=== PATIENT | female | born 1985 | race Caucasian/White ===

== ENCOUNTER 2019-01-25 15:42 | Emergency (ER) | payer OTHER ==
[~2019-01-25] VITALS: Ht 162.6 cm; Wt 61.2 kg
[2019-01-25 16:15] VITALS: BP 119/66
[2019-01-25] MEDS ORDERED: BUTA1TAB23 PO (16:28)
[2019-01-25] MEDS ORDERED: PROCHLORPERAZINE 10 MG/2 ML VIAL. IM ONE (16:30)
--- NOTE | 2019-01-25 16:39 | PHYS DOC ---
Adult General Chief Complaint Chief Complaint: HEADACHE HPI HPI Patient is a 34-year-old female who presents with chief complaint of multiple complaints she has had a migraine and back pain for 2 years now. She one to come to the ER to get another opinion. She has seen a neurologist as well as a neurosurgeon and has had multiple evaluations in the past she said she had steroid injections in her back. Primary issue today seems to be migraine she had a migraine over the weekend she took her aunts Andreea and it actually went away entirely but it came back a little bit today she was wondering if she could maybe get some of that. No fever does have some nausea and vomiting with the m igraine is typical for her start in the back of her ankles different dull throbbing was with the light. Her back pain has been chronic that is unchanged for 2 years no bowel or bladder continence no weakness Review of Systems Review of Systems Constitutional: Denies fever or chills [] Eyes: Denies change in visual acuity, redness, or eye pain [] Musculoskeletal: Denies back pain or joint pain [] Integument: Denies rash or skin lesions [] Neurologic Endocrine: Denies polyuria or polydipsia [] All other systems were reviewed and found to be within normal limits, except as documented in this note. Current Medications Current Medications Current Medications Medications (Trade) Dose Ordered Sig/Mykel Start Time Stop Time Status Last Admin Dose Admin Prochlorperazine Edisylate (Compazine) 10 mg 1X ONCE 01/25/19 16:30 01/25/19 16:31 DC Allergies Allergies Allergies Coded Allergies Type Severity Reaction Last Updated Verified tetracycline Allergy Unknown 01/25/19 Yes Physical Exam Physical Exam Constitutional: Well developed, well nourished, no acute distress, non-toxic appearance. [] HENT: Normocephalic, atraumatic, bilateral external ears normal, oropharynx moist, no oral exudates, nose normal. [] Eyes: PERRLA, EOMI, conjunctiva normal, no discharge. [] Neck: Normal range of motion, no tenderness, supple, no stridor. [] Cardiovascular:Heart rate regular rhythm, no murmur [] Lungs & Thorax: Bilateral breath sounds clear to auscultation [] Abdomen: Bowel sounds normal, soft, no tenderness, no masses, no pulsatile masses. [] Skin: Warm, dry, no erythema, no rash. [] Back: No tenderness, no CVA tenderness. [] Extremities: No tenderness, no cyanosis, no clubbing, ROM intact, no edema. [] Neurologic: Alert and oriented X 3, normal motor function, normal sensory function, no focal deficits noted. [] Psychologic: Affect normal, judgement normal, mood normal. [] EKG EKG [] Radiology/Procedures Radiology/Procedures [] Course & Med Decision Making Course & Med Decision Making Pertinent Labs and Imaging studies reviewed. (See chart for details) []Neurologically intact essentially chronic pain did have a component of an ac barbara migraine she has tried multiple other medications at home that hasn't helped except for Fioricet to give her an small number of those and told her they were for breakthrough pain really was only she understands. Reassurance given no red flags Dragon Disclaimer Dragon Disclaimer This electronic medical record was generated, in whole or in part, using a voice recognition dictation system. Departure Departure: Impression: Primary Impression: Migraine Disposition: HOME, SELF-CARE Condition: STABLE Patient Instructions: Migraine Headache, [id number] Scripts Butalb/Acetaminophen/Caffeine ([id number] 50-325-40) 1 Each Tablet 1 EACH PO Q6HRS PRN for HEADACHE, #10 TAB Prov: JALYN CONDON MD 01/25/19 JALYN CONDON MD Jan 25, 2019 16:39
== END 2019-01-25 16:52 | disposition home or self-care (01) ==
LOC: ER 15:42
DX: G43.909 Migraine, unspecified, not intractable, without status migrainosus (principal); R11.2 Nausea with vomiting, unspecified; M54.89 Other dorsalgia; G89.29 Other chronic pain; Z88.1 Allergy status to other antibiotic agents
CPT/HCPCS: 96372; 99283; J0780

== ENCOUNTER 2019-03-24 18:53 | Emergency (ER) | payer OTHER ==
[~2019-03-24] VITALS: Ht 162.6 cm; Wt 61.2 kg
[2019-03-24 18:53] VITALS: BP 105/63
[~2019-03-24 18:53] MED LIST: BUTA1TAB23 PO
[2019-03-24] MEDS ORDERED: TRAM50TA PO (19:26)
[2019-03-24] MEDS ORDERED: DICL100T PO (19:26)
[2019-03-24] MEDS ORDERED: ORPH-16 PO (19:26)
--- NOTE | 2019-03-24 19:26 | PHYS DOC ---
Past History Past Medical History: Migraines, Other Past Surgical History: No Surgical History Alcohol Use: None Drug Use: Marijuana Adult General Chief Complaint Chief Complaint: BACK PAIN OR INJURY HPI HPI Patient is a 34-year-old female who presents with complaint of chronic midthoracic back pain and states that she has a history of spinal stenosis. She reports that her pain is worsened when she lays down for prolonged periods of time. She states that she has gone the pain management and has had steroid injections but then ultimately made her symptoms worse. She also indicates that she was seen by Dr. Lee but he indicated that she was not a candidate for surgery. Patient states that nothing is improving her pain. Patient indicates that she has had numerous imaging studies to include MRIs which have revealed Schmorl's nodes and spinal and foraminal stenosis but no herniations.[] Review of Systems Review of Systems Constitutional: Denies fever or chills [] Respiratory: Denies cough or shortness of breath [] Cardiovascular: No additional information not addressed in HPI [] Musculoskeletal: Complains of chronic back pain [] Integument: Denies rash or skin lesions [] Neurologic: Denies headache, focal weakness or sensory changes [] Current Medications Current Medications Current Medications Medications (Trade) Dose Ordered Sig/Mykel Start Time Stop Time Status Last Admin Dose Admin Dexamethasone Sodium Phosphate (Decadron) 10 mg 1X ONCE 03/24/19 19:30 03/24/19 19:31 UNV Ketorolac Tromethamine (Toradol Im) 60 mg 1X ONCE 03/24/19 19:30 03/24/19 19:31 UNV Allergies Allergies Allergies Coded Allergies Type Severity Reaction Last Updated Verified tetracycline Allergy Unknown 01/25/19 Yes Physical Exam Physical Exam Constitutional: Well developed, well nourished, no acute distress, non-toxic appearance. [] Neck: Normal range of motion, no tenderness, supple, no stridor. [] Cardiovascular:Heart rate regular rhythm, no murmur [] Lungs & Thorax: Bilateral breath sounds clear to auscultation [] Back: There is point tenderness around spinous process of T7 and in the paraspinal musculature bilaterally in this region. [] Neurologic: Alert and oriented X 3, no focal deficits noted. [] EKG EKG [] Radiology/Procedures Radiology/Procedures [] Course & Med Decision Making Course & Med Decision Making Pertinent Labs and Imaging studies reviewed. (See chart for details) [] Dragon Disclaimer Dragon Disclaimer This electronic medical record was generated, in whole or in part, using a voice recognition dictation system. Departure Departure: Impression: Primary Impression: Chronic back pain Disposition: 01 HOME, SELF-CARE Condition: STABLE Referrals: HORACE JACOBSON (PCP) Patient Instructions: Chronic Back Pain Scripts Diclofenac Sodium (VOLTAREN-XR) 100 Mg Tab.er.24h 1 TAB PO DAILY PRN for PAIN, #15 TAB Prov: KIERA KWOK Jr. DO 03/24/19 Orphenadrine Citrate (ORPHENADRINE CITRATE) 100 Mg Tablet.er 1 TAB PO BID PRN for MUSCLE SPASMS, #14 TAB Prov: KIERA KWOK Jr. DO 03/24/19 Tramadol Hcl (TRAMADOL HCL) 50 Mg Tablet 50 MG PO PRN Q6HRS PRN for PAIN, #15 TAB Prov: KIERA WKOK Jr. DO 03/24/19 Problem Qualifiers Primary Impression: Chronic back pain Back pain location: thoracic back pain Back pain laterality: unspecified Qualified Codes: M54.6 - Pain in thoracic spine; G89.29 - Other chronic pain KIERA KWOK Jr. DO Mar 24, 2019 19:26
[2019-03-24] MEDS ORDERED: KETOROLAC 60 MG/2 ML VIAL. IM ONE (19:30)
[2019-03-24] MEDS ORDERED: DEXAMETHASONE SOD PHOS 10 MG/ML VIAL IM ONE (19:30)
== END 2019-03-24 19:50 | disposition home or self-care (01) ==
LOC: ER 18:53
DX: G89.29 Other chronic pain (principal); M54.6 Pain in thoracic spine; G43.909 Migraine, unspecified, not intractable, without status migrainosus; Z88.1 Allergy status to other antibiotic agents
CPT/HCPCS: 96372; 99284; J1100; J1885

== ENCOUNTER → 2019-06-16 | Outpatient (CLI) | payer OTHER ==
[~2019-06-16] MED LIST changes: +DICL100T PO; +ORPH-16 PO; +TRAM50TA PO
== END | disposition home or self-care (01) ==
LOC: LAB 10:50
PROVIDERS: ATTEND Psychiatry & Neurology Neurology with Special Qualifications in Child Neurology
DX: G25.81 Restless legs syndrome (principal)
CPT/HCPCS: 82728; 83540; 83550

== ENCOUNTER 2019-08-29 17:15 | Emergency (ER) | payer OTHER, BC ==
[~2019-08-29] VITALS: Ht 162.6 cm; Wt 67.4 kg
[2019-08-29 17:24] VITALS: BP 155/82
[2019-08-29] MEDS ORDERED: lidoderm 5% TOP (17:50)
[2019-08-29] MEDS ORDERED: DICL50TA4 PO (17:50)
--- NOTE | 2019-08-29 17:51 | PHYS DOC ---
Past History Past Medical History: Migraines, Other Past Surgical History: Tonsillectomy Alcohol Use: None Drug Use: Marijuana Adult General Chief Complaint Chief Complaint: BACK INJURY [facility] HPI Patient is a 34-year-old female, who presents to the emergency department for evaluation. She states that she has had chronic neck and back pain for several years. She states she has seen several physicians and had numerous imaging tests, some of which she has with her, including an MRI from about a year and a half ago. She states that the pain in her neck is increased over the past few weeks, she denies any discrete injury. She denies any new numbness, weakness, incontinence, or any new symptoms. She states that she is having trouble finding a pain management physicians, because she has states that she received neck and back injections in the past, which have not seemed to improve her symptoms, and other physicians did not seem to want to help her. She currently takes gabapentin, Flexeril, as well as ibuprofen. She also takes Fioricet for her migraines. There are no alleviating or exacerbating factors to her symptoms. Review of Systems Review of Systems Constitutional: Denies fever or chills [] Eyes: Denies change in visual acuity, redness, or eye pain [] HENT: Denies nasal congestion or sore throat [] Respiratory: Denies cough or shortness of breath [] Cardiovascular: No additional information not addressed in HPI [] GI: Denies abdominal pain, nausea, vomiting, bloody stools or diarrhea [] : Denies dysuria or hematuria [] Musculoskeletal: Denies new neck, back pain or joint pain [] Integument: Denies rash or skin lesions [] Neurologic: Denies headache, focal weakness or sensory changes [] Allergies Allergies Allergies Coded Allergies Type Severity Reaction Last Updated Verified tetracycline Allergy Unknown 01/25/19 Yes Physical Exam Physical Exam PHYSICAL EXAM: CONSTITUTIONAL: Well developed, well nourished HEAD: normocephalic, atraumatic EENT: PERRL, EOMI. Conjunctivae normal color, sclerae non-icteric; moist mucous membranes. NECK: Supple, non-tender; no meningismus.There is full, painless range of motion of the cervical spine, without any focal bony midline tenderness to palpation. LUNGS: Lungs CTA, breathing even and unlabored. Normal air movement. HEART: Regular rate and rhythm, no murmur CHEST: No deformity; non-tender ABDOMEN: The abdomen is soft, and non-tender, no masses or bruits. EXTREM: Normal ROM; no deformity, no calf tenderness. Normal pulses palpable in all extremities. There is no pedal edema. SKIN: No rash; no diaphoresis NEURO: Alert; normal speech and cognition; CN's grossly intact; strength grossly intact without focal deficit. BACK: No CVA TTP.There is no bony tenderness to palpation of the thoracic or lumbar spine. Current Patient Data Vital Signs Vital Signs Date Time Temp Pulse Resp B/P (MAP) Pulse Ox O2 Delivery O2 Flow Rate FiO2 08/29/19 17:24 97.8 113 18 155/82 (106) 97 Room Air EKG EKG [] Radiology/Procedures Radiology/Procedures [] Course & Med Decision Making Course & Med Decision Making I discussed the importance of further outpatient evaluation, given the chronic nature of the patient's symptoms, I discussed return precautions for development of neurological symptoms. Dragon Disclaimer Dragon Disclaimer This electronic medical record was generated, in whole or in part, using a voice recognition dictation system. Departure Departure: Impression: Primary Impression: Chronic neck pain Additional Impression: Chronic back pain Disposition: HOME, SELF-CARE Condition: STABLE Referrals: HORACE JACOBSON (PCP) Patient Instructions: Chronic Back Pain, Degenerative Disk Disease Additional Instructions: Do not take the prescribed medication with ibuprofen. Use instead of ibuprofen. Follow up with Dr. Matthias Monaco,, neurosurgery, call [phone] to schedule an appointment. Scripts [lidoderm 5%] No Conflict Check 1 PATCH TOP DAILY, #30 Prov: SUSIE GLORIA MD 08/29/19 Diclofenac Sodium (DICLOFENAC SODIUM) 50 Mg Tablet. 1 TAB PO BID for pain, #20 TAB 1 Refill Prov: SUSIE GLORIA MD 08/29/19 Problem Qualifiers SUSIE GLORIA MD Aug 29, 2019 17:51
== END 2019-08-29 17:55 | disposition home or self-care (01) ==
LOC: ER 17:15
DX: G89.29 Other chronic pain (principal); M54.2 Cervicalgia; M54.9 Dorsalgia, unspecified; G43.909 Migraine, unspecified, not intractable, without status migrainosus; F12.90 Cannabis use, unspecified, uncomplicated; Z90.89 Acquired absence of other organs; Z88.1 Allergy status to other antibiotic agents
CPT/HCPCS: 99283

== ENCOUNTER 2020-02-19 20:24 | Observation (INO) | payer BC, OTHER ==
[~2020-02-19] VITALS: Ht 162.6 cm; Wt 68.2 kg
[~2020-02-19 20:24] MED LIST changes: +DICL50TA4 PO; +lidoderm 5% TOP
[2020-02-19 21:00] LABS: BASO % 0 % (0-3); EOS # 0.1 x10^3/uL (0.0-0.7); EOS % 1 % (0-3); HEMATOCRIT 39.7 % (36.0-47.0); HEMOGLOBIN 13.5 g/dL (12.0-15.5); LYMPH # 2.6 x10^3/uL (1.0-4.8); LYMPH % 41 % (24-48); MEAN CORPUSCULAR HEMOGLOBIN 31 pg (25-35); MEAN CORPUSCULAR HGB CONC 34 g/dL (31-37); MEAN CORPUSCULAR VOLUME 92 fL (79-100); MONO # 0.3 x10^3/uL (0.0-1.1); MONO % 6 % (0-9); NEUT # 3.3 x10^3uL (1.8-7.7); NEUT % 52 % (31-73); PLATELET COUNT 296 x10^3/uL (140-400); RED BLOOD COUNT 4.31 x10^6/uL (3.50-5.40); RED CELL DISTRIBUTION WIDTH 12.8 % (11.5-14.5); WHITE BLOOD COUNT 6.4 x10^3/uL (4.0-11.0)
[2020-02-19] MEDS ORDERED: NALOXONE 0.4 MG/ML VIAL. ONE (21:05)
[2020-02-19 21:08] LABS: CALCIUM 9.5 mg/dL (8.5-10.1); CREATININE 0.9 mg/dL (0.6-1.0); GFR 72.1; POTASSIUM 3.6 mmol/L (3.5-5.1)
[2020-02-19 21:10] LABS: BILIRUBIN,URINE NEG (NEG); CLARITY,URINE CLEAR; COLOR,URINE YELLOW; GLUCOSE,URINE NEG (NEG)
--- NOTE | 2020-02-19 21:10 | EKG ---
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
[2020-02-19 21:11] LABS: BACTERIA,URINE MANY /HPF (0-FEW); HYALINE CASTS, URINE OCC /HPF; NITRITE,URINE POS (NEG); SQUAMOUS EPITHELIAL CELL,UR OCC /LPF; UROBILINOGEN,URINE 0.2 mg/dL (0.2 mg/dL)
[2020-02-19 21:14] LABS: ALBUMIN 4.2 g/dL (3.4-5.0); ALBUMIN/GLOBULIN RATIO 1.5 (1.0-1.7); TOTAL BILIRUBIN 0.4 mg/dL (0.2-1.0)
[2020-02-19] MEDS ORDERED: IV NORMAL SALINE 1,000ML 1,000 ML IV ONE (21:15)
[2020-02-19] MEDS ORDERED: NALOXONE 0.4 MG/ML VIAL. IV ONE (21:15)
--- NOTE | 2020-02-19 21:24 | RAD ---
Exam: CT head and cervical spine without contrast INDICATION: Slurred words, altered mental status TECHNIQUE: Sequential axial images through the head and cervical spine were obtained without the administration of IV contrast. Comparisons: None FINDINGS: Head: No focal parenchymal lesion or hemorrhage is identified. There is no midline shift or sulcal effacement. No acute vascular territory infarction is identified. Martines-white distinction is preserved. The ventricular system is within normal limits without compression hydrocephalus. The basal cisterns are well maintained. The visualized portions of the paranasal sinuses and mastoid air cells are well-pneumatized. No acute fractures. Cervical spine: Straightening of cervical spine which may positional. Vertebral body heights are well-maintained. Fracture to the cervical spine is not identified. No significant spondylotic change in cervical spine. Visualized spinal soft tissues are unremarkable. IMPRESSION: 1. No acute intracranial abnormality. 2. Negative CT C-spine for acute traumatic injury. Exposure: One or more of the following in the visualized dose reduction techniques were utilized for this examination: 1. Automated exposure control 2. Adjustment of the MA and/or KV according to patient size Use of iterative of reconstructive technique Electronically signed by: Pasquale Tucker MD (02/19/2020 9:22 PM) [id number]
--- NOTE | 2020-02-19 21:28 | RAD ---
Exam: Right ankle 3 views INDICATION: Swelling TECHNIQUE: Frontal, lateral and oblique views of the right ankle Comparisons: None FINDINGS: Soft tissue swelling at the ankle prominently overlying the lateral malleolus. Bone mineralization is normal. No acute or healed fractures. IMPRESSION: Soft tissue swelling at the ankle without underlying osseous abnormality identified. Electronically signed by: Pasquale Tucker MD (02/19/2020 9:25 PM) [id number]
--- NOTE | 2020-02-19 21:29 | RAD ---
Exam: Chest one view INDICATION: Slurred speech TECHNIQUE: Frontal view of the chest Comparisons: None FINDINGS: The cardiomediastinal silhouette and pulmonary vessels are within normal limits. The lung and pleural spaces are clear. IMPRESSION: No acute cardiopulmonary process. Electronically signed by: Pasquale Tucker MD (02/19/2020 9:26 PM) [id number]
[2020-02-19 21:30] LABS: SALIC < 2.8 mg/dL (2.8-20.0)
[2020-02-19 21:31] LABS: ACETAMIN < 2.0 mcg/mL (10-30)
[2020-02-19 22:19] LABS: AMPHETAMINE/METHAMPHETAMINE NEG (NEG); BARBITURATES POS (NEG); BENZODIAZEPINES POS (NEG); CANNABINOIDS NEG (NEG); COCAINE NEG (NEG); METHADONE NEG (NEG); OPIATES POS (NEG); PHENCYCLIDINE NEG (NEG)
[2020-02-19] MEDS ORDERED: IV NORMAL SALINE 50ML 50 ML ONE (22:48)
[2020-02-19] MEDS ORDERED: cefTRIAXone SODIUM 1 GM VIAL ONE (22:48)
[2020-02-19 23:35] VITALS: BP 118/73
--- NOTE | 2020-02-20 02:50 | PHYS DOC ---
Past History Past Medical History: Migraines, Other Past Surgical History: Tonsillectomy Alcohol Use: None Drug Use: Marijuana Adult General Chief Complaint Chief Complaint: ALTERED MENTAL STATUS HPI HPI Patient is a 35 year old female who presents with altered mental status and a swollen right ankle. According to report patient was found down outside of her house by her . Nobody had seen her for 3 hours. She reportedly had gone to the pool at their neighbors house and and left the pool 3 hours earlier to go get something and never returned. Patient is unable to provide any history. Review of Systems Review of Systems Unable to obtain Current Medications Current Medications Current Medications Medications (Trade) Dose Ordered Sig/Mykel Start Time Stop Time Status Last Admin Dose Admin Ceftriaxone Sodium 1 gm/ Sodium Chloride 50 ml @ 100 mls/hr 1X ONCE 02/19/20 22:45 02/19/20 23:14 DC 02/19/20 22:52 100 MLS/HR Ceftriaxone Sodium (Rocephin) 1 gm STK-MED ONCE 02/19/20 22:48 02/19/20 22:48 DC Naloxone HCl (Narcan) 0.4 mg 1X ONCE 02/19/20 21:15 02/19/20 21:16 DC 02/19/20 21:08 0.4 MG Sodium Chloride 50 ml @ As Directed STK-MED ONCE 02/19/20 22:48 02/19/20 22:48 DC Allergies Allergies Allergies Coded Allergies Type Severity Reaction Last Updated Verified tetracycline Allergy Unknown 01/25/19 Yes Physical Exam Physical Exam General: Awake, lethargic, no acute distress. Well Nourished, well hydrated. Cooperative HEENT: Atraumatic, EOMI, PERRL, airway patent, dry oral mucosa Neck: Supple, trachea midline Respiratory: CTA bilaterally, normal effort, no wheezing/crackles CV: Tachycardic, no murmur, cap refill <2 GI: Soft, nondistended, nontender, no masses MSK: Right ankle swelling with minimal bruising, no lacerations Skin: Warm, dry, intact Neuro: Slurred incomprehensible speech, reacts to pain in all 4 extremities, follows commands in all 4 extremities Current Patient Data Vital Signs Vital Signs Date Time Temp Pulse Resp B/P (MAP) Pulse Ox O2 Delivery O2 Flow Rate FiO2 02/19/20 23:35 98.6 96 18 118/73 (88) 100 Room Air Lab Results Laboratory Tests Test 02/19/20 20:30 02/19/20 20:35 02/19/20 20:37 02/19/20 22:00 White Blood Count 6.4 x10^3/uL (4.0-11.0) Red Blood Count 4.31 x10^6/uL (3.50-5.40) Hemoglobin 13.5 g/dL (12.0-15.5) Hematocrit 39.7 % (36.0-47.0) Mean Corpuscular Volume 92 fL (79-100) Mean Corpuscular Hemoglobin 31 pg (25-35) Mean Corpuscular Hemoglobin Concent 34 g/dL (31-37) Red Cell Distribution Width 12.8 % (11.5-14.5) Platelet Count 296 x10^3/uL (140-400) Neutrophils (%) (Auto) 52 % (31-73) Lymphocytes (%) (Auto) 41 % (24-48) Monocytes (%) (Auto) 6 % (0-9) Eosinophils (%) (Auto) 1 % (0-3) Basophils (%) (Auto) 0 % (0-3) Neutrophils # (Auto) 3.3 x10^3uL (1.8-7.7) Lymphocytes # (Auto) 2.6 x10^3/uL (1.0-4.8) Monocytes # (Auto) 0.3 x10^3/uL (0.0-1.1) Eosinophils # (Auto) 0.1 x10^3/uL (0.0-0.7) Basophils # (Auto) 0.0 x10^3/uL (0.0-0.2) Salicylates Level < 2.8 mg/dL (2.8-20.0) L Salicylate Last Dose Date Unknown Salicylate Last Dose Time Unknown Acetaminophen Level < 2.0 mcg/mL (10-30) L Acetaminophen Last Dose Date Unknown Acetaminophen Last Dose Time Unknown Ethyl Alcohol Level < 10 mg/dL (0-10) Sodium Level 144 mmol/L (136-145) Potassium Level 3.6 mmol/L (3.5-5.1) Chloride Level 105 mmol/L (98-107) Carbon Dioxide Level 28 mmol/L (21-32) Anion Gap 11 (6-14) Blood Urea Nitrogen 8 mg/dL (7-20) Creatinine 0.9 mg/dL (0.6-1.0) Estimated GFR (Cockcroft-Gault) 72.1 BUN/Creatinine Ratio 9 (6-20) Glucose Level 103 mg/dL (70-99) H Calcium Level 9.5 mg/dL (8.5-10.1) Total Bilirubin 0.4 mg/dL (0.2-1.0) Aspartate Amino Transferase (AST) 14 U/L (15-37) L Alanine Aminotransferase (ALT) 23 U/L (14-59) Alkaline Phosphatase 46 U/L (46-116) Creatine Kinase 88 U/L (26-192) Troponin I Quantitative < 0.017 ng/mL (0-0.055) Total Protein 7.0 g/dL (6.4-8.2) Albumin 4.2 g/dL (3.4-5.0) Albumin/Globulin Ratio 1.5 (1.0-1.7) Urine Collection Type U cath Urine Color Yellow Urine Clarity Clear Urine pH 6.0 Urine Specific [place] 1.025 Urine Protein Neg (NEG-TRACE) Urine Glucose (UA) Neg mg/dL (NEG) Urine Ketones (Stick) Neg mg/dL (NEG) Urine Blood Trace (NEG) Urine Nitrite Pos (NEG) Urine Bilirubin Neg (NEG) Urine Urobilinogen Dipstick 0.2 mg/dL (0.2 mg/dL) Urine Leukocyte Esterase Neg (NEG) Urine RBC 3-5 /HPF (0-2) Urine WBC 5-10 /HPF (0-4) Urine Squamous Epithelial Cells Occ /LPF Urine Bacteria Many /HPF (0-FEW) Urine Hyaline Casts Occ /HPF Urine Mucus Slight /LPF Urine Opiates Screen Pos (NEG) Urine Methadone Screen Neg (NEG) Urine Barbiturates Pos (NEG) Urine Phencyclidine Screen Neg (NEG) Urine Amphetamine/Methamphetamine Neg (NEG) Urine Benzodiazepines Screen Pos (NEG) Urine Cocaine Screen Neg (NEG) Urine Cannabinoids Screen Neg (NEG) Urine Ethyl Alcohol Neg (NEG) EKG EKG [] Radiology/Procedures Radiology/Procedures [] Course & Med Decision Making Course & Med Decision Making Pertinent Labs and Imaging studies reviewed. (See chart for details) Patient is a 35-year-old [] who presents to the Emergency Room with altered mental status. On exam, male patient has slurred speech and is unable to provide history. She also has signs of trauma to her ankle making a fall possible. Glucose was normal upon arrival. Patient's temperature is normal. There are signs of trauma. Differential includes intoxication, psychosis, possible infection, metabolic encephalopathy, overdose, atypical migraine, concussion, intracranial bleed. CBC, BMP, UA, drug screen, alcohol level, tylenol/salicylate levels, CT head were ordered to evaluate for cause of altered mental status. On reevaluation, patient is unchanged. Work-up is negative. Patient will be admitted for observation. Dragon Disclaimer Dragon Disclaimer This electronic medical record was generated, in whole or in part, using a voice recognition dictation system. Departure Departure: Impression: Primary Impression: Altered mental status Additional Impressions: Fall Sprained ankle Disposition: 01 HOME/RESIDENCE PRIOR TO ADM Condition: STABLE Referrals: HORACE JACOBSON (PCP) Justification of Admission: Justification of Admission: Justification of Admission Dx: Yes Problem Qualifiers ANTONIO PRICE MD Feb 20, 2020 02:50
[2020-02-20 05:28] VITALS: BP 127/74
[2020-02-20] MEDS ORDERED: IBUPROFEN 600 MG TABLET. PO ONE (06:00)
[2020-02-20] MEDS ORDERED: CYCL-331 PO (06:45)
[2020-02-20] MEDS ORDERED: TRAZ-120 PO (06:45)
[2020-02-20] MEDS ORDERED: PREG50CA PO (06:45)
[2020-02-20] MEDS ORDERED: IBUP400T18 PO (06:45)
--- NOTE | 2020-02-20 10:05 | DS ---
DATE OF DISCHARGE: 02/20/2020 ATTENDING PHYSICIAN: Dr. Adame. FINAL DISCHARGE DIAGNOSES: 1. Altered mentation due to a combination of medicines and alcohol. 2. Migraine equivalent. 3. History of migraine headaches. 4. Chronic low back pain. 5. Degenerative arthritis. 6. Sprained ankle without evidence of fracture. HISTORY AND PHYSICAL: The patient is a 35-year-old female who was confused. She had taken some Flexeril along with some alcohol in a pool democrat. brought her here and she does not remember what happened. She had fallen sustaining a mild sprain of the right ankle. X-rays demonstrated no acute fracture. There is some soft tissue swelling. She was admitted then for observation. Her CT of the head and cervical spine were entirely unremarkable. PHYSICAL EXAMINATION: Please see the dictated note. PERTINENT LABORATORY AND X-RAY STUDIES: Normal CT head normal. Normal Chest x-ray. Soft tissue swelling of the right ankle without any evidence of acute fractures. Her hemoglobin was normal at 13.5 g/dL with white count of 6400. Chemistry panel: BUN and creatinine, cardiac enzymes, blood sugar are all within normal range. COURSE IN HOSPITAL: The patient was admitted for observation. She went back to baseline. Thought process is clear. She was quite lucid. She had no further issues. At this time, I recommended that she continue using her Fioricet for pain. She will follow up with Manny Flores in the office. I would recommend avoiding further alcohol use while she is on these medications. Other home meds are unchanged as in the H and P. She was discharged then from our hospital in stable condition with explicit instructions and followup care. ORALIA ADAME MD DR: KAYCEE/elizabeth JOB#: [id number] / [id number] MANNY Brenner
--- NOTE | 2020-02-20 10:05 | HP ---
ADMIT DATE: 02/20/2020 ATTENDING PHYSICIAN: Dr. Adame. CHIEF COMPLAINT: Confusion. HISTORY OF PRESENT ILLNESS: The patient is a 35-year-old female brought in by the with onset of confusion. She has a longstanding history of migraine headaches. She took her regular medication. She had some Flexeril for chronic back pain and she had a couple of drinks of the pool green party, she went home, was confused and the brought in for altered mentation. She could not remember what happened. She has sprained her ankle on the right side. X-rays demonstrated a soft tissue swelling, no acute fractures identified. She was brought in for observation. PAST MEDICAL HISTORY: Significant for chronic migraine headaches, chronic low back pain. She is currently being evaluated for rheumatoid arthritis. ALLERGIES: SHE HAS ALLERGIES TO TETRACYCLINE. EXACT CAUSE IS UNCLEAR. SOCIAL HISTORY: She is a nonsmoker. She drinks very rarely. She is . She lives with her mom and her and 2 sons, ages 2 and 9. The mom provides full-time care. 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 She tells me she has been under a lot of stress. She has chronic neck and back pain. CURRENT MEDICATIONS: Reviewed. She was on prescription Fioricet p.r.n. pain, trazodone, recently started by a pain specialist, Flexeril p.r.n., Voltaren p.r.n., ibuprofen p.r.n., Lyrica, Ultram, trazodone and Lidoderm patch. FAMILY HISTORY: Noncontributory. REVIEW OF SYSTEMS: Significant for increased stress of chronic neck and back pain. No fevers, chills, COVID exposure, cough, congestion, some palpitations occasionally, some difficulty sleeping. No weight gain. All other systems reviewed and turned to be negative. PHYSICAL EXAMINATION: GENERAL: I saw her, this is a pleasant young female. INITIAL VITAL SIGNS: Showed blood pressure 118/73, pulse is 90 and regular, temperature 98.6 degrees Fahrenheit, oxygen saturation 98% on room air. HEENT: Head is without trauma. Pupils are reactive. Sclerae nonicteric. Oropharynx clear. NECK: Supple, no bruits identified. LUNGS: Clear to auscultation. CARDIOVASCULAR: Showed regular heart tones. No gallops. Peripheral pulses are palpable and full. ABDOMEN: Soft, scaphoid, nontender, no organomegaly. Bowel sounds are hypoactive. EXTREMITIES: Showed no cyanosis or edema. NEUROLOGIC: Focally intact. Speech is fluent. SKIN: Warm and dry. LABORATORY STUDIES: Her hemoglobin is 13.5 g/dL with white count of 6400. Electrolytes, BUN and creatinine within normal range. Cardiac enzymes negative for coronary ischemia. Nonfasting blood sugar 103. IMAGING STUDIES: The right ankle film showed soft tissue swelling without any acute changes. Chest x-ray was clear without any cardiopulmonary process. The CT of the head and cervical spine showed no acute intracranial abnormalities, normal CT C-spine for acute traumatic injury. ASSESSMENT: 1. A 35-year-old female with altered mentation due to a combination of medications and alcohol. 2. History of migraine headache. 3. Chronic neck and low back pain. PLAN: 1. Observation status. 2. Hold Flexeril. 3. Diet as tolerated. ORALIA ADAME MD DR: KAYCEE/elizabeth JOB#: [id number] / [id number] PARVIZ Brenner
[2020-02-20] MEDS ORDERED: OXYC1TAB22 PO (10:11)
[2020-02-20] MEDS ORDERED: oxyCODONE/APAP 10/325 1 TAB TABLET PO ONE (10:15)
== END 2020-02-20 10:30 | disposition home or self-care (01) ==
LOC: ER 20:24 → UNDOADMOB 23:06 → 1 SOUTH 23:06 → UNDODISOB 02-20 10:30
PROVIDERS: ADMIT Hospitalist; ATTEND Hospitalist
DX: R41.82 Altered mental status, unspecified (principal); G43.909 Migraine, unspecified, not intractable, without status migrainosus; G89.29 Other chronic pain; M54.5 Low back pain; M19.90 Unspecified osteoarthritis, unspecified site; S93.401A Sprain of unspecified ligament of right ankle, initial encounter; W18.39XA Other fall on same level, initial encounter; Y93.89 Activity, other specified; Y92.89 Other specified places as the place of occurrence of the external cause
CPT/HCPCS: 36415; 70450; 71045; 72125; 73610; 80053; 80307; 80329; 81001; 82550; 84484; 85025; 87086; 93005; 96361; 96365; 96375; 99285; G0378; G0480; J0696; J2310; J7030; 81025; 82947; G0379